=== PATIENT | female | born 1955 | race Caucasian/White ===

== ENCOUNTER → 2016-09-26 | Outpatient (CLI) | payer OTHER ==
--- NOTE | 2016-09-26 13:44 | DX ---
Chest, PA and Lateral History: Bronchitis, cough, J20.9, R05 Comparison: November 28, 2014 Findings: Lungs are clear, without infiltrate or consolidation. Heart size is normal. There is no jocelyn nopathy or mass lesion. There is no pleural effusion. There is stable degenerative spurring to the ri ght of midline at T8-T9. Bones are unremarkable for age. Impression: No pneumonia.
== END ==
LOC: CIMAGING 12:49
PROVIDERS: ATTEND Family Medicine
DX: R05 Cough (principal)
CPT/HCPCS: 71020-PO

== ENCOUNTER → 2016-10-23 | Outpatient (CLI) | payer OTHER | LOC: CIMAGING 07:13 | DX: Z12.31 Encounter for screening mammogram for malignant neoplasm of breast (principal) | CPT/HCPCS: G0202 ==

== ENCOUNTER 2016-12-19 07:04 | Emergency (ER) | payer OTHER ==
--- NOTE | 2016-12-19 07:07 | EDPHY ---
H & P HPI/ROS: CHIEF COMPLAINT: Chest pain. HISTORY OF PRESENT ILLNESS: The patient is a 61-year-old female with a history of hypercholesterolemia and reactive airways disease who presents with left- sided chest pain that began at 0530 this morning upon waking. The pain is sharp and has been radiating farther down her arm since onset. She also describes a numbness radiating up both sides of her jaw that has mostly resolved. These symptoms are not currently present at rest and are worsened with movement. They are not pleuritic in nature. They were preceded last night by a shooting pain into her left hand that began at 2100. She admits recent associated sore throat , ongoing cough, and ongoing mild shortness of breath. She denies current shortness of breath, fever, vomiting, abdominal pain, diarrhea. She has a history of similar symptoms ten years ago and had a full cardiac workup. She had a negative cardiac catheterization at [facility]. She has been under a lot of stress in the past year, having lost her 9 months ago. Her father of a heart attack in his late 50s. REVIEW OF SYSTEMS: A 10 point review of systems was performed and is negative with the exception of the elements mentioned in the history of present illness. Source: Patient Exam Limitations: No limitations - Personal History Tetanus Vaccine Date: 2005 - Medical/Surgical History Hx Asthma: Yes Hx Chronic Respiratory Disease: No Hx Diabetes: No Hx Cardiac Disease: No Hx Renal Disease: No Hx Cirrhosis: No Hx Alcoholism: No Hx HIV/AIDS: No Hx Splenectomy or Spleen Trauma: No Other PMH: 1. Hypercholesterolemia. 2. Thyroid mass, s/p resection. 3. Reactive airways disease. - Family History Significant Family History: Heart disease (Father of a heart attack in his late 50s.) - Social History Smoking Status: Never smoked Additional Social History: Nonsmoker, no alcohol use, works at [employer]. . Two children living on the [facility]. - Physical Exam Exam: General Appearance: Alert, no acute distress. BP 147/97. Eyes: Pupils equal and round, no conjunctival injection, no discharge. ENT, Mouth: Mucous membranes are moist, no oropharyngeal erythema or edema. Neck: No lymphadenopathy, supple. Trachea midline. No jugular venous distention. No tenderness with palpation over the cervical spine in the midline. No pain with active range of motion of her neck. Respiratory: Lungs are clear to auscultation; no wheezes, rales, or rhonchi. Cardiovascular: Regular rate and rhythm; no murmur, rub, or gallop. Gastrointestinal: Abdomen is soft and nontender, no masses or organomegaly, bowel sounds normal. Skin: Warm and dry, no rashes, normal color. Back: Nontender to palpation over the thoracolumbar spine. Extremities: No lower extremity edema, no calf tenderness or swelling. Neurological: Alert and oriented. Moving all four extremities easily and equally. 5/5 strength bilateral UEs. Sensation is intact to light touch on the face. Sensation intact to light touch over both upper extremities. Psychiatric: Normal affect. Constitutional: Initial Vital Signs Temperature (C) 36.6 C 12/19/16 07:05 Heart Rate 85 12/19/16 07:05 Respiratory Rate 18 12/19/16 07:05 Blood Pressure 147/97 H 12/19/16 07:05 O2 Sat (%) 97 12/19/16 07:05 O2 Delivery Mode Room Air Allergies/Adverse Reactions: No Known Allergies Allergy (Unverified 12/19/16 07:28) Home Medications: Medication Instructions Recorded Aspirin [Aspirin 81mg (OTC)] 81 mg PO DAILY 03/16/15 Calcium Carbonate [Oyster Shell 500 mg PO BID 03/16/15 Calcium] Cholecalciferol Vit D3 [Vitamin D3 800 iunits PO DAILY 03/16/15 (OTC)] Fluticasone Nasal [Flonase Nasal 2 sprays [place] DAILY PRN 03/16/15 [place] (RX)] Lansoprazole [Prevacid] 30 mg PO DAILY 03/16/15 Diagonal-3 Fatty Acids [Fish Oil] 1,000 mg PO DAILY 03/16/15 Simvastatin [Zocor] 20 mg PO DAILY@03/16/15 Triamterene/Hydrochlorothiazid 0.5 - 1 tab PO DAILY PRN 03/16/15 [Triamterene-Hctz 37.5-25 mg Tb] Albuterol Sulfate [Albuterol 1 - 2 puffs IH Q4H PRN 03/22/15 Inhaler Hfa] Meclizine HCl [Meclizine HCl 25 mg 25 mg PO DAILY PRN 03/22/15 (RX,OTC)] Medical Decision Making - Diagnostics EKG Interpretation: The 12 lead EKG was interpreted by myself. See hard copy and/or "tracemaster" electronic copy for interpretation. Sinus rhythm rate 80. No ischemic changes. Imaging Results: Imaging Impressions Chest X-Ray 12/19/16 07:16 Impression: Stable and normal. Imaging: I viewed and interpreted images myself ED Course/Re-evaluation: 61-year-old female with a history of hypercholesterolemia, early cardiac in her father, and reactive airways disease presents with chest pain that began this morning at 0530 (2 hours ago). The pain radiates to her jaw and left arm. Considering her medical history I am concerned for a cardiac process in this patient. An IV was established and labs ordered. Chest x-ray, EKG obtained. 324mg PO Aspirin administered. I independently viewed the patient's chest x-ray on the PACS system. My interpretation: no acute cardiopulmonary disease. Patient's laboratory studies unremarkable. Troponin is negative. 0805: Reassessed patient. Discussed results of the workup so far. She is still complaining of left-sided chest pain that is not pleuritic in nature. I do not suspect pulmonary embolus. There is no evidence of infection on chest x-ray. No pneumothorax on chest x-ray. Her pain and the numbness that she experienced could be related to a cervical radiculopathy. She has a normal neurologic exam of her upper extremities at the time of my evaluation. Blood pressure is 137/ 90. 0835: Reassessed patient after nitroglycerin. She had some relief and now rates her discomfort as very mild. She would like to go home. She understands to follow up with her primary care provider within 72 hours for reevaluation. Her heart score is 3, giving her up to 1.7% chance of having a major cardiac event within the next 6 weeks. She and I discussed this. I continue to recommend overnight hospitalization, as she still has some upper left chest discomfort. She understands the risks of returning home and the benefits of hospitalization. She is capable of making her own medical decisions. She understands that she could have a heart attack and even . She chooses to return home. She will return for re-evaluation if she develops new or worsening symptoms. She is aware that her blood pressure readings were elevated. They did improve significantly while she was in the emergency department. Differential Diagnosis: Chest pain including but not limited to myocardial ischemia, pulmonary embolus, chest wall pain, pleural inflammation and pulmonary infectious causes. - Data Points Laboratory Results: Laboratory Results 12/19/16 07:25 12/19/16 07:25 12/19/16 12/19/16 07:25 07:25 WBC 6.89 10^3/uL 10^3/uL (3.80-9.50) RBC 4.81 10^6/uL 10^6/uL (4.18-5.33) Hgb 14.2 g/dL g/dL (12.6-16.3) Hct 41.2 % % (38.0-47.0) MCV 85.7 fL fL (81.5-99.8) MCH 29.5 pg pg (27.9-34.1) MCHC 34.5 g/dL g/dL (32.4-36.7) RDW 13.2 % % (11.5-15.2) Plt Count 349 10^3/uL 10^3/uL (150-400) MPV 9.0 fL fL (8.7-11.7) Neut % (Auto) 42.9 % % (39.3-74.2) Lymph % (Auto) 43.7 % % (15.0-45.0) [place] % (Auto) 9.3 % % (4.5-13.0) Eos % (Auto) 3.0 % % (0.6-7.6) Baso % (Auto) 1.0 % % (0.3-1.7) Nucleat RBC Rel Count 0.0 % % (0.0-0.2) Absolute Neuts (auto) 2.95 10^3/uL 10^3/uL (1.70-6.50) Absolute Lymphs (auto) 3.01 10^3/uL H 10^3/uL (1.00-3.00) Absolute Monos (auto) 0.64 10^3/uL 10^3/uL (0.30-0.80) Absolute Eos (auto) 0.21 10^3/uL 10^3/uL (0.03-0.40) Absolute Basos (auto) 0.07 10^3/uL 10^3/uL (0.02-0.10) Absolute Nucleated RBC 0.00 10^3/uL 10^3/uL (0-0.01) Immature Gran % 0.1 % % (0.0-1.1) Immature Gran # 0.01 10^3/uL 10^3/uL (0.00-0.10) Sodium 141 mEq/L mEq/L (134-144) Potassium 3.8 mEq/L mEq/L (3.5-5.2) Chloride 104 mEq/L mEq/L (97-110) Carbon Dioxide 24 mEq/l mEq/l (22-31) Anion Gap 13 mEq/L mEq/L (8-16) BUN 22 mg/dL mg/dL (7-23) Creatinine 0.6 mg/dL mg/dL (0.6-1.0) Estimated GFR > 60 Glucose 98 mg/dL mg/dL (70-100) Calcium 9.8 mg/dL mg/dL (8.5-10.4) Troponin I < 0.012 ng/mL ng/mL (0-0.034) Medications Given: Discontinued Medications Aspirin (Aspirin) 325 mg PO EDNOW ONE Stop: 12/19/16 07:17 Last Admin: 12/19/16 07:45 Dose: 325 mg Nitroglycerin (Nitrostat) 0.4 mg SL Q5M PRN PRN Reason: Chest Pain Stop: 12/19/16 08:32 Last Admin: 12/19/16 08:24 Dose: 0.4 tab Departure - Departure Disposition: Home, Routine, Self-Care Clinical Impression: Chest pain Qualifiers: Chest pain type: unspecified Qualified Code(s): R07.9 - Chest pain, unspecified Condition: Good Instructions: Chest Pain (ED) Additional Instructions: Call your primary care provider today to set up a follow up appointment. Return for any change in your condition or worsening of your symptoms. Referrals: Debora Church MD [Primary Care Provider] - As per Instructions Report Scribed for: Katy Parker Report Scribed by: Ihsan Byrne Date of Report: 12/19/16 Time of Report: 07:18 Physician Review and Approval Statement: 12/19/16 08:25 Portions of this note were transcribed by the medical illustrator. I, Dr. Katy Parker, personally performed the history, physical exam, and medical decision- making; and confirmed the accuracy of the information in the transcribed note.
[2016-12-19] MEDS ORDERED: ASPIRIN 325 MG TAB PO ONE (07:16)
--- NOTE | 2016-12-19 07:18 | CPEKG ---
Heart Rate: 80 RR Interval: 750 P-R Interval: 196 QRSD Interval: 90 QT Interval: 380 QTC Interval: 439 P [place]: 16 QRS [place]: 23 T Wave [place]: 27 EKG Severity - NORMAL ECG - EKG Impression: SINUS RHYTHM Electronically Signed By: Katy Parker 19-Dec-2016 08:23:36
[2016-12-19 07:31] VITALS: TEMP 97.9
[2016-12-19 07:33] LABS: % IMMATURE GRANULYOCYTES 0.1 % (0.0-1.1); ABSOLUTE IMMATURE GRANULOCYTES 0.01 10^3/uL (0.00-0.10); ADD DIFF? NO; ADD MORPH? NO; ADD SCAN? NO; ATYPICAL LYMPHOCYTE FLAG 10 (0-99); FRAGMENT RBC FLAG 0 (0-99); HEMATOCRIT 41.2 % (38.0-47.0); HEMOGLOBIN 14.2 g/dL (12.6-16.3); LEFT SHIFT FLG 0 (0-99); LIPEMIA HEMOLYSIS FLAG 90 (0-99); MEAN CELL HEMOGLOBIN 29.5 pg (27.9-34.1); MEAN CELL HEMOGLOBIN CONCENTR. 34.5 g/dL (32.4-36.7); MEAN CELL VOLUME 85.7 fL (81.5-99.8); PLATELET CLUMPS FLAG 0 (0-99); PLATELET COUNT 349 10^3/uL (150-400); RED BLOOD CELL COUNT 4.81 10^6/uL (4.18-5.33); RED CELL DISTRIBUTION WIDTH 13.2 % (11.5-15.2)
[2016-12-19 07:50] LABS: ANION GAP 13 mEq/L (8-16); CALCIUM 9.8 mg/dL (8.5-10.4); CARBON DIOXIDE 24 mEq/l (22-31); CHLORIDE 104 mEq/L (97-110); CREATININE 0.6 mg/dL (0.6-1.0); GLOMERULAR FILTRATION RATE > 60; GLUCOSE 98 mg/dL (70-100); POTASSIUM 3.8 mEq/L (3.5-5.2); SODIUM 141 mEq/L (134-144)
[2016-12-19 08:01] LABS: TROPONIN I < 0.012 ng/mL (0-0.034)
[2016-12-19] MEDS ORDERED: NITROGLYCERIN 0.4 MG BTL SL PRN (08:21)
[2016-12-19] MEDS ORDERED: NITROGLYCERIN 0.4 MG BTL SL ONE (08:22)
[2016-12-19 09:27] VITALS: BP 118/85
[2016-12-19 09:53] VITALS: PULSE 72; RESP 16; O2SAT 95
== END 2016-12-19 09:44 | disposition home or self-care (01) ==
LOC: CED 07:04
DX: R07.9 Chest pain, unspecified (principal); J45.909 Unspecified asthma, uncomplicated; Z79.82 Long term (current) use of aspirin
CPT/HCPCS: 71020-PO; 80048-PO; 84484-PO; 85025-PO

== ENCOUNTER → 2017-03-31 | Outpatient (CLI) | payer OTHER | LOC: CIMAGING 11:56 | PROVIDERS: ATTEND Podiatrist | DX: M20.12 Hallux valgus (acquired), left foot (principal); M15.4 Erosive (osteo)arthritis | CPT/HCPCS: 73630-PO ==

== ENCOUNTER → 2017-04-20 | Outpatient (CLI) | payer OTHER | LOC: FIMAGING 13:17 | PROVIDERS: ATTEND Family Medicine | DX: Z13.820 Encounter for screening for osteoporosis (principal); M81.0 Age-related osteoporosis without current pathological fracture ==

== ENCOUNTER → 2017-09-28 | Outpatient (CLI) | payer OTHER | LOC: CIMAGING 15:44 | PROVIDERS: ATTEND Podiatrist | DX: M79.674 Pain in right toe(s) (principal) | CPT/HCPCS: 73630-PO ==

== ENCOUNTER → 2018-06-04 | Outpatient (CLI) | payer OTHER | LOC: CIMAGING 08:24 | PROVIDERS: ATTEND Family Medicine | DX: Z12.31 Encounter for screening mammogram for malignant neoplasm of breast (principal) ==